=== PATIENT | male | born 1980 | race Caucasian/White ===

== ENCOUNTER 2018-09-04 15:17 | Emergency (ER) | payer MEDICARE, OTHER ==
[2018-09-04 15:23] VITALS: BP 112/77; PULSE 100; RESP 20; TEMP 98
[2018-09-04] MEDS ORDERED: IBUPROFEN 600 MG TAB PO STA (15:38)
--- NOTE | 2018-09-04 15:45 | ED ---
General Adult HPI - General Chief complaint: Back Pain/Injury Stated complaint: Fall, back injury Time Seen by Provider: 09/04/18 15:29 Source: patient, RN notes reviewed Mode of arrival: ambulatory Limitations: no limitations - History of Present Illness Initial comments: 38-year-old male presents to the emergency department for a chief complaint of back pain 40 minutes. Patient was walking when he slipped on the ice and fell. Patient hit the middle of his back. Patient did not hit his head or lose consciousness. No headache. No blood thinners. No low back pain. Patient also complains of right-sided paraspinal pain. Patient denies bladder or bowel changes. Patient denies saddle anesthesia, paresthesias in the legs, or weakness in the lower extremities. Patient has no other complaints at this time including shortness of breath, chest pain, abdominal pain, nausea or vomiting, headache, or visual changes. - Related Data Home Medications Medication Instructions Recorded Confirmed Albuterol Inhaler [Ventolin Hfa 1 - 2 puff INHALATION RT-Q6H PRN 09/04/18 Inhaler] Flovent Unknown Dose 1 puff INHALATION RT-BID 09/04/18 09/04/18 Ibuprofen [Motrin] 800 mg PO TID PRN 09/04/18 09/04/18 Loratadine [Claritin] 10 mg PO DAILY 09/04/18 09/04/18 Montelukast [Singulair] 10 mg PO HS 09/04/18 09/04/18 Allergies Allergy/AdvReac Type Severity Reaction Status Date / Time beclomethasone [From Qvar] Allergy Chest Pain Verified 09/04/18 15:47 Review of Systems ROS Statement: Those systems with pertinent positive or pertinent negative responses have been documented in the HPI. ROS Other: All systems not noted in ROS Statement are negative. Past Medical History Past Medical History: Asthma History of Any Multi-Drug Resistant Organisms: None Reported Past Surgical History: Ear Surgery Past Psychological History: Anxiety Smoking Status: Current every day smoker Past Alcohol Use History: None Reported Past Drug Use History: Marijuana General Exam Limitations: no limitations General appearance: alert, in no apparent distress Head exam: Present: atraumatic, normocephalic, normal inspection Eye exam: Present: normal appearance, PERRL, EOMI. Absent: scleral icterus, conjunctival injection, periorbital swelling ENT exam: Present: normal exam, mucous membranes moist Neck exam: Present: normal inspection, full ROM. Absent: tenderness, meningismus, lymphadenopathy Respiratory exam: Present: normal lung sounds bilaterally. Absent: respiratory distress, wheezes, rales, rhonchi, stridor Cardiovascular Exam: Present: regular rate, normal rhythm, normal heart sounds. Absent: systolic murmur, diastolic murmur, rubs, gallop, clicks GI/Abdominal exam: Present: soft, normal bowel sounds. Absent: distended, tenderness, guarding, rebound, rigid Extremities exam: Present: normal capillary refill (Capillary refill less than 2 seconds and DP pulse 2+ and lower extremities bilaterally) Back exam: Present: tenderness (Tenderness noted to the thoracic spine and right -sided posterior ribs). Absent: other (No hematoma or laceration noted of the back) Neurological exam: Present: alert, oriented X3, CN II-XII intact Psychiatric exam: Present: normal affect, normal mood Course Vital Signs 09/04/18 15:21 Temperature 98.0 F Pulse Rate 100 Respiratory 20 Rate Blood Pressure 112/77 O2 Sat by Pulse 99 Oximetry Medical Decision Making - Medical Decision Making X-ray of the thoracic spine shows no acute fracture or dislocation. No tenderness in the cervical or lumbar spines. Chest x-ray shows no acute cardiopulmonary process or pleural effusion. X-ray of the right ribs shows no displaced fracture seen. Soft tissue unremarkable. Urine does not show any blood. Patient given Motrin, feeling better at this time. Patient will follow up with primary care in 1-2 days and return if he has any worsening symptoms. Discussed Motrin and Tylenol for pain. - Lab Data Lab Results 09/04/18 Range/Units 16:11 Urine Color Yellow Urine Appearance Clear (Clear) Urine pH 7.5 (5.0-8.0) Ur Specific [place] 1.023 (1.001-1.035) Urine Protein Trace H (Negative) Urine Glucose (UA) Negative (Negative) Urine Ketones Negative (Negative) Urine Blood Negative (Negative) Urine Nitrite Negative (Negative) Urine Bilirubin Negative (Negative) Urine Urobilinogen 2.0 (<2.0) mg/dL Ur Leukocyte Esterase Negative (Negative) Disposition Clinical Impression: Fall, Thoracic back pain Disposition: HOME SELF-CARE Condition: Good Instructions (If sedation given, give patient instructions): Acute Low Back Pain (ED) Additional Instructions: Please take Motrin or Tylenol for pain. Please follow up with primary care in 1 -2 days. Please return to the emergency department if you have any worsening symptoms. Is patient prescribed a controlled substance at d/c from ED?: No Referrals: Eric Jang MD [Primary Care Provider] - 1-2 days Time of Disposition: 16:44
--- NOTE | 2018-09-04 16:01 | XR ---
EXAMINATION TYPE: XR ribs RT w pa chest xray DATE OF EXAM: 09/04/2018 CLINICAL HISTORY: Fall injury with chest and right-sided rib pain. TECHNIQUE: Single frontal view of the chest is obtained. A frontal and oblique images of the right-si ded ribs are acquired. COMPARISON: None FINDINGS: There is no focal air space opacity, pleural effusion, or pneumothorax seen. The cardiac silhouette size is within normal limits. The osseous structures are intact. Dedicated images of right-sided ribs show no acute displaced fracture. Overlying soft tissue is unrem arkable. IMPRESSION: 1. No acute cardiopulmonary process. 2. No acute displaced right-sided rib fractures are seen.
--- NOTE | 2018-09-04 16:03 | XR ---
EXAMINATION TYPE: XR thoracic spine 2V DATE OF EXAM: 09/04/2018 CLINICAL HISTORY: Fall injury with mid back pain. TECHNIQUE: Frontal, lateral, and swimmer's view of thoracic spine are obtained. COMPARISON: None. FINDINGS: Thoracic spine show satisfactory alignment without evidence of acute fracture or dislocatio n. Vertebral body heights and disc space heights are preserved. Visualized ribs are unremarkable. IMPRESSION: No acute fracture or dislocation is seen in the thoracic spine.
[2018-09-04 16:29] LABS: Appearance,Urine Clear (Clear); Bilirubin,Urine Negative (Negative); Blood,Urine Negative (Negative); Color,Urine Yellow; Glucose,Urine (UA) Negative (Negative); Ketones,Urine Negative (Negative); Leukocyte Esterase,Urine Negative (Negative); Nitrite,Urine Negative (Negative); PH, Urine 7.5 (5.0-8.0); Protein,Urine Trace (Negative); Specific Gravity,Urine 1.023 (1.001-1.035)
== END 2018-09-04 17:13 | disposition home or self-care (01) ==
LOC: EC 15:17
DX: M54.6 Pain in thoracic spine (principal); J45.909 Unspecified asthma, uncomplicated; F41.9 Anxiety disorder, unspecified; F17.200 Nicotine dependence, unspecified, uncomplicated; Z79.51 Long term (current) use of inhaled steroids; Z79.899 Other long term (current) drug therapy; Z88.8 Allergy status to other drugs, medicaments and biological substances
CPT/HCPCS: 72070; 81003; 99283

== ENCOUNTER 2020-05-22 12:24 | Emergency (ER) | payer MEDICARE, OTHER ==
[2020-05-22 12:34] VITALS: BP 113/86; PULSE 112; RESP 18; TEMP 98.8
--- NOTE | 2020-05-22 14:04 | XR ---
EXAMINATION TYPE: XR chest 2V DATE OF EXAM: 05/22/2020 COMPARISON: Prior chest x-rays to 09/04/2018 HISTORY: Cough TECHNIQUE: Frontal and lateral views of the chest are obtained. FINDINGS: There is bronchial wall thickening. No pneumothorax or pleural effusion. Cardiac mediastin al silhouette, pulmonary vascularity and carolyn are stable. No evident airspace disease. IMPRESSION: Correlate for bronchitis or reactive airways disease, follow-up as indicated.
--- NOTE | 2020-05-22 14:13 | ED ---
General Adult HPI - General Chief complaint: Upper Respiratory Infection Stated complaint: COVID Test Time Seen by Provider: 05/22/20 12:39 Source: patient Mode of arrival: ambulatory Limitations: no limitations - History of Present Illness Initial comments: She 39-year-old male presenting to the emergency department with a chief complaint of cough and sore throat. Patient reports symptoms began yesterday. Patient states she is a smoker and does have history of asthma so his cough is at baseline. However, he does report slight increase in the nonproductive cough. He does report sore throat along with rhinorrhea. He denies any chest pain or shortness of breath. Denies any night sweats or chills. - Related Data Home Medications Medication Instructions Recorded Confirmed Albuterol Inhaler (Mhu) [Ventolin 1 - 2 puff INHALATION RT-Q6H PRN 09/04/18 09/04/18 Hfa Inhaler] Flovent Unknown Dose 1 puff INHALATION RT-BID 09/04/18 09/04/18 Ibuprofen [Motrin] 800 mg PO TID PRN 09/04/18 09/04/18 Loratadine [Claritin] 10 mg PO DAILY 09/04/18 09/04/18 Montelukast [Singulair] 10 mg PO HS 09/04/18 09/04/18 Allergies Allergy/AdvReac Type Severity Reaction Status Date / Time beclomethasone [From Qvar] Allergy Chest Pain Verified 05/22/20 12:32 Review of Systems ROS Statement: Those systems with pertinent positive or pertinent negative responses have been documented in the HPI. ROS Other: All systems not noted in ROS Statement are negative. Past Medical History Past Medical History: Asthma, COPD History of Any Multi-Drug Resistant Organisms: None Reported Past Surgical History: Ear Surgery Past Psychological History: Anxiety Smoking Status: Current every day smoker Past Alcohol Use History: None Reported, Daily Past Drug Use History: Marijuana General Exam Limitations: no limitations General appearance: alert, in no apparent distress Head exam: Present: atraumatic, normocephalic, normal inspection Eye exam: Present: normal appearance, PERRL, EOMI Pupils: Present: normal accommodation ENT exam: Present: normal exam, normal oropharynx, mucous membranes moist, TM's normal bilaterally, normal external ear exam Neck exam: Present: normal inspection, full ROM. Absent: tenderness, lymphadenopathy Respiratory exam: Present: normal lung sounds bilaterally. Absent: respiratory distress, wheezes, rhonchi, stridor, chest wall tenderness, accessory muscle use, decreased breath sounds, prolonged expiratory Cardiovascular Exam: Present: regular rate, normal rhythm, normal heart sounds GI/Abdominal exam: Present: soft. Absent: distended, tenderness, guarding, rebound Extremities exam: Present: normal inspection, full ROM, normal capillary refill. Absent: tenderness Back exam: Present: normal inspection, full ROM. Absent: tenderness, CVA tenderness (R), CVA tenderness (L) Neurological exam: Present: alert, oriented X3, normal gait Psychiatric exam: Present: normal affect, normal mood Skin exam: Present: warm, dry, intact, normal color Course Vital Signs 05/22/20 12:29 Temperature 98.8 F Pulse Rate 112 H Respiratory 18 Rate Blood Pressure 113/86 O2 Sat by Pulse 97 Oximetry Medical Decision Making - Medical Decision Making Patient a 39-year-old male presenting to the emergency department with chief complaint of cough and sore throat. On physical examination, patient is not in any respiratory distress. He is clear to auscultation. ENT exam unremarkable. I suspect the patient has an upper respiratory infection with bronchitis. X-ray does correlate for bronchitis. No signs of pneumonia. His vitals are stable. covid-19t testing pending. She was advised to suffice for next 2 days until covid-19e testing pending. He was advised to take Tylenol if he develops a fever. I counseled the patient for smoking cessation for greater than 3 minutes Strict return parameters were thoroughly discussed patient is sitting and agreeable. Case discussed with physician. Disposition Clinical Impression: Acute upper respiratory infection, Bronchitis Disposition: HOME SELF-CARE Condition: Stable Instructions (If sedation given, give patient instructions): Upper Respiratory Infection (ED) Additional Instructions: Self isolate for the next 2 days and to receive the results of the Covid testing. Take Tylenol if she develops fever. Return to emergency department if symptoms worsen. Follow-up with the primary care physician. Is patient prescribed a controlled substance at d/c from ED?: No Referrals: Eric Jang MD [Primary Care Provider] - 1-2 days Time of Disposition: 14:13
== END 2020-05-22 14:43 | disposition home or self-care (01) ==
LOC: EC 12:24
DX: J06.9 Acute upper respiratory infection, unspecified (principal); J44.9 Chronic obstructive pulmonary disease, unspecified; F17.200 Nicotine dependence, unspecified, uncomplicated; Z71.6 Tobacco abuse counseling; Z20.828 Contact with and (suspected) exposure to other viral communicable diseases; Z79.51 Long term (current) use of inhaled steroids; Z88.8 Allergy status to other drugs, medicaments and biological substances
CPT/HCPCS: 71046; 99283; 99406; U0003

== ENCOUNTER 2021-04-20 18:04 | Emergency (ER) | payer MEDICARE, OTHER ==
[2021-04-20 18:20] VITALS: RESP 20
[2021-04-20] MEDS ORDERED: LIDOCAINE 1% INJ 10MG/ML (20 ML MDV) SQ ONE (19:04)
[2021-04-20] MEDS ORDERED: KETOROLAC 15 MG/ML 1 ML VIAL IM STA (19:04)
--- NOTE | 2021-04-20 19:53 | ED ---
Skin/Abscess/FB HPI - General Chief complaint: Skin/Abscess/Foreign Body Stated complaint: abscess on buttock Time Seen by Provider: 04/20/21 18:54 Source: patient, RN notes reviewed Mode of arrival: ambulatory Limitations: no limitations - History of Present Illness Initial comments: Patient is a 40-year-old male that presents to the emergency department complaining of a left buttock abscess. He notes that is been there for the past 4 days and is progressively got worse. Hetried getting himself taking warm baths warm compresses with no relief. He notes that he finally came in to get it drained today. He denied any other issues or complaints. He notes that it is painful to sit move on his left buttock. He denied any chest pain shortness of breath headache nausea vomiting diarrhea constipation fever fatigue chills. - Related Data Home Medications Medication Instructions Recorded Confirmed Albuterol Inhaler (Mhu) [Ventolin 1 - 2 puff INHALATION RT-Q6H PRN 09/04/18 09/04/18 Hfa Inhaler] Flovent Unknown Dose 1 puff INHALATION RT-BID 09/04/18 09/04/18 Ibuprofen [Motrin] 800 mg PO TID PRN 09/04/18 09/04/18 Loratadine [Claritin] 10 mg PO DAILY 09/04/18 09/04/18 Montelukast [Singulair] 10 mg PO HS 09/04/18 09/04/18 Previous Rx's Medication Instructions Recorded Sulfamethox-Tmp 800-160Mg [Bactrim 1 each PO Q12HR #20 tab 04/20/21 Ds] Allergies Allergy/AdvReac Type Severity Reaction Status Date / Time beclomethasone [From Qvar] Allergy Chest Pain Verified 04/20/21 18:20 Review of Systems ROS Statement: Those systems with pertinent positive or pertinent negative responses have been documented in the HPI. ROS Other: All systems not noted in ROS Statement are negative. Past Medical History Past Medical History: Asthma, COPD History of Any Multi-Drug Resistant Organisms: None Reported Past Surgical History: Ear Surgery Past Psychological History: Anxiety Smoking Status: Current every day smoker Past Alcohol Use History: None Reported, Daily Past Drug Use History: Marijuana General Exam Limitations: no limitations General appearance: alert, in no apparent distress Head exam: Present: atraumatic, normocephalic, normal inspection Eye exam: Present: normal appearance, PERRL, EOMI. Absent: scleral icterus, conjunctival injection, periorbital swelling Neck exam: Present: normal inspection Respiratory exam: Present: normal lung sounds bilaterally. Absent: respiratory distress, wheezes, rales, rhonchi, stridor Cardiovascular Exam: Present: regular rate, normal rhythm, normal heart sounds. Absent: systolic murmur, diastolic murmur, rubs, gallop, clicks GI/Abdominal exam: Present: soft, normal bowel sounds. Absent: distended, tenderness, guarding, rebound, rigid Extremities exam: Present: normal inspection, full ROM, normal capillary refill. Absent: tenderness, pedal edema, joint swelling, calf tenderness Neurological exam: Present: alert, oriented X3 Psychiatric exam: Present: normal affect, normal mood Skin exam: Present: warm, dry, intact, normal color. Absent: rash Expanded Type of lesion: Present: abscess (Inside left buttock superior aspect measuring approximately 4 cm x 4 cm. Tender to touch. Erythematous.) Course Vital Signs 04/20/21 18:18 Temperature 98.1 F Pulse Rate 107 H Respiratory 20 Rate Blood Pressure 118/73 O2 Sat by Pulse 94 L Oximetry Procedures - Incision & Drainage Consent Obtained: verbal consent Site: buttock (Left) Size (cm): 5 Anesthetic Used: lidocaine 1% I&D Cleaning Method: Betadine Sterile Field Used?: Yes Scalpel Used: #11 Needle Aspiration Performed?: No Irrigation Performed?: Yes I&D Drainage Obtained: Pus, Blood Culture Obtained?: Yes Complications: pain Patient Tolerated Procedure: well Medical Decision Making - Medical Decision Making 40-year-old male with a left buttock abscess. Lidocaine, 15 mg of Toradol. Area was sterilized using Betadine, local anesthetic was applied around the abscess and then directly into the abscess. Small incision using a scalpel made over the most fluctuant area. Patient tolerated well did have minimal discomfort. Wound culture obtained. Patient will be sent home with antibiotics. Case discussed with Dr. Guaman, patient can discharge home. Disposition Clinical Impression: Left buttock abscess Disposition: HOME SELF-CARE Condition: Stable Instructions (If sedation given, give patient instructions): Abscess (ED), Abscess Incision and Drainage (ED) Additional Instructions: Please return to the Emergency Department if symptoms worsen or any other concerns. Take antibiotics as prescribed until complete. Follow-up primary care 1-2 days. Sits baths as needed for discomfort and tenderness. Take Tylenol Motrin as needed for pain. Is patient prescribed a controlled substance at d/c from ED?: No Referrals: Eric Jang MD [Primary Care Provider] - 1-2 days Time of Disposition: 19:53
[2021-04-20 20:14] VITALS: BP 116/78; PULSE 98; TEMP 98
== END 2021-04-20 20:13 | disposition home or self-care (01) ==
LOC: EC 18:04
DX: L02.31 Cutaneous abscess of buttock (principal); J44.9 Chronic obstructive pulmonary disease, unspecified; F17.200 Nicotine dependence, unspecified, uncomplicated; F12.90 Cannabis use, unspecified, uncomplicated; Z79.51 Long term (current) use of inhaled steroids; Z79.1 Long term (current) use of non-steroidal anti-inflammatories (NSAID); Z79.899 Other long term (current) drug therapy
CPT/HCPCS: 87070; 87205; 10060; 96372; 99283; J2001; J1885

== ENCOUNTER 2021-05-26 08:06 | Emergency (ER) | payer MEDICARE, OTHER ==
[2021-05-26 08:11] VITALS: BP 138/99; PULSE 99; RESP 18; TEMP 98.9
[2021-05-26] MEDS ORDERED: ACET/COD 300 MG/30 MG STARTER PACK 6 TAB BTL PO STA (08:32)
--- NOTE | 2021-05-26 08:32 | ED ---
General Adult HPI - General Stated complaint: dental infection Time Seen by Provider: 05/26/21 08:10 Source: patient, RN notes reviewed Mode of arrival: ambulatory Limitations: no limitations - History of Present Illness Initial comments: 32-year-old male presents from for dental infection. Patient was placed on amoxicillin he states he missed several days of the symptoms worsen. Patient has left cheek swelling, discomfort has not follow-up as directed. Patient denies any other complaints no headache dizziness difficulty swelling no fevers or chills. - Related Data Home Medications Medication Instructions Recorded Confirmed Albuterol Inhaler (Mhu) [Ventolin 1 - 2 puff INHALATION RT-Q6H PRN 09/04/18 09/04/18 Hfa Inhaler] Flovent Unknown Dose 1 puff INHALATION RT-BID 09/04/18 09/04/18 Ibuprofen [Motrin] 800 mg PO TID PRN 09/04/18 09/04/18 Loratadine [Claritin] 10 mg PO DAILY 09/04/18 09/04/18 Montelukast [Singulair] 10 mg PO HS 09/04/18 09/04/18 Previous Rx's Medication Instructions Recorded Sulfamethox-Tmp 800-160Mg [Bactrim 1 each PO Q12HR #20 tab 04/20/21 Ds] Chlorhexidine Gluconate [Peridex] 15 ml PO BID #473 ml 05/26/21 Clindamycin HCl 300 mg PO Q6HR #40 cap 05/26/21 Ibuprofen [Motrin] 600 mg PO Q8HR PRN #30 tab 05/26/21 Allergies Allergy/AdvReac Type Severity Reaction Status Date / Time beclomethasone [From Qvar] Allergy Chest Pain Verified 05/26/21 08:11 Review of Systems ROS Statement: Those systems with pertinent positive or pertinent negative responses have been documented in the HPI. ROS Other: All systems not noted in ROS Statement are negative. Past Medical History Past Medical History: Asthma, COPD, Hyperlipidemia Additional Past Medical History / Comment(s): alcoholism History of Any Multi-Drug Resistant Organisms: None Reported Past Surgical History: Ear Surgery Past Psychological History: Anxiety Smoking Status: Current every day smoker Past Alcohol Use History: Daily Past Drug Use History: Marijuana General Exam Limitations: no limitations General appearance: alert, in no apparent distress Head exam: Present: atraumatic, normocephalic, normal inspection Eye exam: Present: normal appearance, PERRL, EOMI. Absent: scleral icterus, conjunctival injection, periorbital swelling ENT exam: Present: mucous membranes moist, TM's normal bilaterally, normal external ear exam. Absent: normal oropharynx (Poor dentition, no drainable abscess there is mild swelling of the left cheek region) Neck exam: Present: normal inspection, full ROM. Absent: tenderness, meningismus, lymphadenopathy Respiratory exam: Present: normal lung sounds bilaterally. Absent: respiratory distress, wheezes, rales, rhonchi, stridor Cardiovascular Exam: Present: regular rate, normal rhythm, normal heart sounds. Absent: systolic murmur, diastolic murmur, rubs, gallop, clicks Course Vital Signs 05/26/21 08:08 Temperature 98.9 F Pulse Rate 99 Respiratory 18 Rate Blood Pressure 138/99 O2 Sat by Pulse 97 Oximetry Medical Decision Making - Medical Decision Making Patient advised that needs a follow-up with dentist or oral surgeon as directed. Return parameters were discussed patient placed on clindamycin, Peridex. Disposition Clinical Impression: Dental infection Disposition: HOME SELF-CARE Condition: Stable Instructions (If sedation given, give patient instructions): Dental Abscess (ED) Additional Instructions: Please return to the Emergency Department if symptoms worsen or any other concerns. Prescriptions: Clindamycin HCl 300 mg PO Q6HR #40 cap Ibuprofen [Motrin] 600 mg PO Q8HR PRN #30 tab PRN Reason: Pain Chlorhexidine Gluconate [Peridex] 15 ml PO BID #473 ml Is patient prescribed a controlled substance at d/c from ED?: No Referrals: Eric Jang MD [Primary Care Provider] - 1-2 days
== END 2021-05-26 08:45 | disposition home or self-care (01) ==
LOC: EC 08:06
DX: K04.7 Periapical abscess without sinus (principal); J44.9 Chronic obstructive pulmonary disease, unspecified; E78.5 Hyperlipidemia, unspecified; F41.9 Anxiety disorder, unspecified; F17.200 Nicotine dependence, unspecified, uncomplicated; F12.90 Cannabis use, unspecified, uncomplicated
CPT/HCPCS: 99282

== ENCOUNTER 2022-04-26 16:45 | Emergency (ER) | payer MEDICARE, OTHER ==
[2022-04-26] MEDS ORDERED: MORPHINE SULFATE 4 MG/ML SYRINGE IV STA (16:48)
[2022-04-26] MEDS ORDERED: PROPOFOL 10 MG/ML 20 ML VIAL IV ONE (16:51)
[2022-04-26 16:53] VITALS: RESP 18; TEMP 98.1
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
--- NOTE | 2022-04-26 17:29 | XR ---
EXAMINATION TYPE: XR chest 1V portable DATE OF EXAM: 04/26/2022 COMPARISON: 05/22/2020 HISTORY: Chest pain TECHNIQUE: Single frontal view of the chest is obtained. FINDINGS: There is no focal air space opacity, pleural effusion, or pneumothorax seen. The cardiac silhouette size is within normal limits. The osseous structures are intact. IMPRESSION: 1. No acute process.
--- NOTE | 2022-04-26 17:29 | XR ---
EXAMINATION TYPE: XR pelvis AP view DATE OF EXAM: 04/26/2022 CLINICAL HISTORY: pain TECHNIQUE: Single view the pelvis is submitted. FINDINGS: No evidence for fracture, dislocation or bony lesion. Joint spaces are well-preserved. S I joints appear symmetric. IMPRESSION: 1. No acute fracture or dislocation seen. ICD 10 NO FRACTURE, INITIAL EVALUATION
--- NOTE | 2022-04-26 17:32 | XR ---
EXAMINATION TYPE: XR ankle limited RT DATE OF EXAM: 04/26/2022 COMPARISON: NONE HISTORY: Pain TECHNIQUE: 2 views of the right ankle are submitted. COMPARISON: None. FINDINGS: Examination is limited by overlying cast material. There is displaced distal fibular fractu re with mild comminution with displacement of 5 mm. Medial malleolar fracture is also noted. There is anterior malleolar fracture as well as posterior malleolar fracture. Ankle mortise demonstrates abno rmal widening medially measuring 5.8 mm. There is also widening of the medial tibiotalar joint space. No additional fracture seen. IMPRESSION: Fractures of the medial malleolus, anterior malleolus, posterior malleolus and distal fib farida. Instability of the ankle mortise.
[2022-04-26 17:38] LABS: Chloride 107 mmol/L (98-107)
[2022-04-26 17:40] LABS: HCT 51.1 % (39.0-53.0); HGB 17.4 gm/dL (13.0-17.5); MCH 32.1 pg (25.0-35.0); MCV 94.5 fL (80.0-100.0); Mean Platelet Volume 8.2; Platelet Count 344 k/uL (150-450); RBC 5.41 m/uL (4.30-5.90); RDW 13.8 % (11.5-15.5); WBC 13.3 k/uL (3.8-10.6)
[2022-04-26 17:41] LABS: ALT 44 U/L (4-49); AST 42 U/L (17-59); African American GFR (CKD) >90 (>60 ml/min/1.73 sqM); Albumin 4.6 g/dL (3.5-5.0); Alkaline Phosphatase 88 U/L (38-126); Anion Gap 19 mmol/L; Blood Urea Nitrogen 11 mg/dL (9-20); Calcium 9.8 mg/dL (8.4-10.2); Carbon Dioxide 16 mmol/L (22-30); Glucose 119 mg/dL (74-99); Non-African American GFR(CKD) 81 (>60 ml/min/1.73 sqM); Potassium 4.7 mmol/L (3.5-5.1); Sodium 142 mmol/L (137-145); Total Bilirubin 0.3 mg/dL (0.2-1.3); Total Protein 7.4 g/dL (6.3-8.2)
[2022-04-26 17:43] LABS: Alcohol 188 mg/dL
[2022-04-26 18:57] LABS: Amphetamine Screen,Urine Not Detected (NotDetected); Barbiturate Screen,Urine Not Detected (NotDetected); Benzodiazepines Screen,Urine Not Detected (NotDetected); Cocaine Screen,Urine Not Detected (NotDetected); Methadone Screen, Urine Not Detected (NotDetected); Opiate Screen,Urine Detected (NotDetected); Oxycodone Screen, Urine Not Detected (NotDetected); Phencyclidine Screen,Urine Not Detected (NotDetected); Tricyclic Antidepressant,Urine Not Detected (NotDetected); Urn Cannabinoid Scrn Detected (NotDetected)
--- NOTE | 2022-04-26 19:03 | CT ---
EXAMINATION TYPE: CT brain jayme will DATE OF EXAM: 04/26/2022 COMPARISON: None HISTORY: [facility] CT DLP: 1368.[address] Brain: Unenhanced CT of the brain was performed. The ventricles, basal cisterns and sulci overlying the cerebral convexities demonstrate a normal appe arance. There is no evidence for intracranial hemorrhage or sulcal effacement. No mass effects are seen. If symptoms persist consider MRI. Osseous calvarium is intact. Opacification left maxillary sinus. IMPRESSION: No acute intracranial process CT Cervical Spine: Unenhanced CT of the cervical spine was performed with bone and soft tissue window settings submitted . Coronal and sagittal reconstruction is obtained. There is normal alignment and prevertebral soft tissues. I do not see evidence for fracture or sublu xation. No significant degenerative changes are present. The lung apices are clear. IMPRESSION: No evidence for acute fracture or subluxation of the cervical spine.
[2022-04-26 19:04] VITALS: BP 115/83; PULSE 90
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
[2022-04-26] MEDS ORDERED: HYDROmorphone 1 MG/ML 1 ML SYRINGE IVP STA (19:14)
[2022-04-26 19:15] LABS: Eosinophils # (M) 1.06 k/uL (0-0.7); Lymphocytes # (M) 7.18 k/uL (1.0-4.8); Neutrophils # (M) 4.26 k/uL (1.3-7.7); Neutrophils % (M) 32 %; Nucleated Red Blood Cells 0 /100 WBC (0-0); Total Cells Counted 100
[2022-04-26] MEDS ORDERED: DIPH,PERTUS(ACELL)TETVAC-LF 0.5 ML VIAL IM ONE (19:22)
== END 2022-04-26 20:54 | disposition other institution (70) ==
LOC: EC 16:45
DX: S82.51XA Displaced fracture of medial malleolus of right tibia, initial encounter for closed fracture (principal); S40.812A Abrasion of left upper arm, initial encounter; S40.811A Abrasion of right upper arm, initial encounter; S80.812A Abrasion, left lower leg, initial encounter; R07.9 Chest pain, unspecified; F10.20 Alcohol dependence, uncomplicated; F12.90 Cannabis use, unspecified, uncomplicated; F11.90 Opioid use, unspecified, uncomplicated; J44.9 Chronic obstructive pulmonary disease, unspecified; E78.5 Hyperlipidemia, unspecified; F17.200 Nicotine dependence, unspecified, uncomplicated; Z20.822 Contact with and (suspected) exposure to COVID-19; Z23 Encounter for immunization; Z79.51 Long term (current) use of inhaled steroids; Z88.5 Allergy status to narcotic agent; V28.4XXA Motorcycle driver injured in noncollision transport accident in traffic accident, initial encounter; Y90.6 Blood alcohol level of 120-199 mg/100 ml
CPT/HCPCS: 36415; 93005; 86900; 86901; 80053; 84484; 85025; 86850; 80306; 87635; 72170; 73600; 71045; 72125; 70450; 71260; 74177; 90715; 99285; 27762; 96374; 96375; 90471; G0480; J2270; J1170; Q9967; 80320

== ENCOUNTER 2023-01-16 11:17 | Emergency (ER) | payer MEDICARE, OTHER ==
[2023-01-16] MEDS ORDERED: CARBAMIDE PEROXIDE 6.5% DROPS 15 ML BTL LEFT EAR STA (11:51)
--- NOTE | 2023-01-16 11:54 | ED ---
ENT HPI - General Chief complaint: ENT Stated complaint: Unable to hear out of left ear Time Seen by Provider: 01/16/23 11:33 Source: patient, RN notes reviewed, old records reviewed Mode of arrival: ambulatory Limitations: no limitations - History of Present Illness Initial comments: Patient states he woke up this morning to clean the wax out of his ears with a Q-tip and was unable and now has hearing loss. Denies any pain or bleeding. No drainage. No fevers. No other symptoms. History of asthma, COPD, hyperlipidemia. MD complaint: other (hearing loss left ear with wax impaction) -: hour(s) Location: ear Severity scale (1-10): 0 - Related Data Home Medications Medication Instructions Recorded Confirmed Albuterol Inhaler [Ventolin Hfa 1 - 2 puff INHALATION RT-Q6H PRN 09/04/18 09/04/18 Inhaler] Flovent Unknown Dose 1 puff INHALATION RT-BID 09/04/18 09/04/18 Ibuprofen [Motrin] 800 mg PO TID PRN 09/04/18 09/04/18 Loratadine [Claritin] 10 mg PO DAILY 09/04/18 09/04/18 Montelukast [Singulair] 10 mg PO HS 09/04/18 09/04/18 Previous Rx's Medication Instructions Recorded Sulfamethox-Tmp 800-160Mg [Bactrim 1 each PO Q12HR #20 tab 04/20/21 Ds] Chlorhexidine Gluconate [Peridex] 15 ml PO BID #473 ml 05/26/21 Ibuprofen [Motrin] 600 mg PO Q8HR PRN #30 tab 05/26/21 clindamycin HCL [Clindamycin HCl] 300 mg PO Q6HR #40 cap 05/26/21 Allergies Allergy/AdvReac Type Severity Reaction Status Date / Time beclomethasone [From Qvar] Allergy Chest Pain Verified 01/16/23 11:31 Review of Systems ROS Statement: Those systems with pertinent positive or pertinent negative responses have been documented in the HPI. ROS Other: All systems not noted in ROS Statement are negative. Past Medical History Past Medical History: Asthma, COPD, Hyperlipidemia Additional Past Medical History / Comment(s): alcoholism History of Any Multi-Drug Resistant Organisms: None Reported Past Surgical History: Ear Surgery, Orthopedic Surgery Additional Past Surgical History / Comment(s): right foot, Past Psychological History: Anxiety Smoking Status: Current every day smoker Past Alcohol Use History: Daily Past Drug Use History: Marijuana General Exam Limitations: no limitations General appearance: alert, in no apparent distress Head exam: Present: atraumatic Eye exam: Present: normal appearance. Absent: scleral icterus, conjunctival injection, periorbital swelling ENT exam: Present: mucous membranes moist Expanded Ear exam: Present: normal external inspection. Absent: auricular hematoma, auricular trauma TM/Canal exam: Cerumen Impaction: Left TM (right ear clear) Mouth exam: Absent: drooling, trismus, muffled voice Neck exam: Present: full ROM. Absent: tenderness, meningismus, lymphadenopathy, thyromegaly Respiratory exam: Absent: respiratory distress, accessory muscle use Cardiovascular Exam: Present: tachycardia Extremities exam: Present: normal capillary refill Neurological exam: Present: alert, oriented X3 Psychiatric exam: Present: normal affect, normal mood Skin exam: Present: warm, dry, normal color. Absent: cyanosis, diaphoretic, pallor Course Vital Signs 01/16/23 01/16/23 11:28 12:35 Temperature 98.7 F 98.5 F Pulse Rate 105 H 94 Respiratory 18 16 Rate Blood Pressure 125/80 127/81 O2 Sat by Pulse 96 97 Oximetry Medical Decision Making - Medical Decision Making Was pt. sent in by a medical professional or institution (RABIA Mata, DAMAGE ADJUSTER, urgent care, hospital, or long-term...) When possible be specific @ -No Did you speak to anyone other than the patient for history (EMS, parent, family, police, friend...)? What history was obtained from this source @ -No Did you review nursing and triage notes (agree or disagree)? Why? @ -I reviewed and agree with nursing and triage notes Were old charts reviewed (outside hosp., previous admission, EMS record, old EKG, old radiological studies, urgent care reports/EKG's, long-term records)? Report findings @ -No old charts were reviewed Differential Diagnosis (chest pain, altered mental status, abdominal pain women, abdominal pain men, vaginal bleeding, weakness, fever, dyspnea, syncope, headache, dizziness, GI bleed, back pain, seizure, CVA, palpatations, mental health, musculoskeletal)? @ -Foreign body, otitis externa, otitis media, cerumen impaction EKG interpreted by me (3pts min.). @ -n/a X-rays interpreted by me (1pt min.). @ -None done CT interpreted by me (1pt min.). @ -None done U/S interpreted by me (1pt. min.). @ -None done What testing was considered but not performed or refused? (CT, X-rays, U/S, labs)? Why? @ -None What meds were considered but not given or refused? Why? @ -None Did you discuss the management of the patient with other professionals (professionals i.e. , PA, DAMAGE ADJUSTER, lab, RT, psych nurse, professor of social work, supervisor home energy consultant, teacher, annual giving officer, family independence case manager)? Give summary @ -No Was smoking cessation discussed for >3mins.? @ -No Was critical care preformed (if so, how long)? @ -No Were there social determinants of health that impacted care today? How? (Homelessness, low income, unemployed, alcoholism, drug addiction, transportation, low edu. Level, literacy, decrease access to med. care, [facility], rehab)? @ -No Was there de-escalation of care discussed even if they declined (Discuss DNR or withdrawal of care, Hospice)? DNR status @ -No What co-morbidities impacted this encounter? (DM, HTN, Smoking, COPD, CAD, Cancer, CVA, ARF, Chemo, Hep., AIDS, mental health diagnosis, sleep apnea, morbid obesity)? @ -History of asthma, COPD, hyperlipidemia. Was patient admitted / discharged? Hospital course, mention meds given and route, prescriptions, significant lab abnormalities, going to OR and other pertinent info. @ -Discharged Patient states he woke up this morning to clean the wax out of his ears with a Q-tip and was unable and now has hearing loss. Denies any pain or bleeding. No drainage. No fevers. No other symptoms. Nursing staff instilled Debrox and irrigated with warm water and hydrogen peroxide combination with success, cerumen impaction relieved and patient feeling much better. Patient was directed not to use Q-tips. Use [id number] Debrox solution as needed. Follow-up with ENT as needed. Case discussed with Dr. Hook Undiagnosed new problem with uncertain prognosis? @ -No Drug Therapy requiring intensive monitoring for toxicity (Heparin, Nitro, Insulin, Cardizem)? @ -No Were any procedures done? @ -No Diagnosis/symptom? @ -Cerumen impaction left ear Acute, or Chronic, or Acute on Chronic? @ -Acute Uncomplicated (without systemic symptoms) or Complicated (systemic symptoms)? @ -Uncomplicated Side effects of treatment? @ -No Exacerbation, Progression, or Severe Exacerbation? @ -No Poses a threat to life or bodily function? How? (Chest pain, [place], [place], pneumonia, PE, COPD, DKA, ARF, appy, cholecystitis, CVA, Diverticulitis, Homicidal, Suicidal, threat to staff... and all critical care pts) @ -No Disposition Clinical Impression: Cerumen impaction Disposition: HOME SELF-CARE Condition: Good Instructions (If sedation given, give patient instructions): Earache (ED) Additional Instructions: You can use [id number] earwax treatments however do not use Q-tips which will pack the wax tightly causing hearing loss. Follow-up with ENT as needed. Return to the emergency room with any new or concerning symptoms. Is patient prescribed a controlled substance at d/c from ED?: No Referrals: Eric Jang MD [Primary Care Provider] - 1-2 days Christian Torres MD [STAFF PHYSICIAN] - 1-2 days Time of Disposition: 12:23
[2023-01-16 12:37] VITALS: BP 127/81; PULSE 94; RESP 16; TEMP 98.5
== END 2023-01-16 13:15 | disposition home or self-care (01) ==
LOC: EC 11:17
DX: H61.22 Impacted cerumen, left ear (principal); J44.9 Chronic obstructive pulmonary disease, unspecified; F41.9 Anxiety disorder, unspecified; F17.200 Nicotine dependence, unspecified, uncomplicated; F12.90 Cannabis use, unspecified, uncomplicated; Z88.8 Allergy status to other drugs, medicaments and biological substances; Z79.899 Other long term (current) drug therapy
CPT/HCPCS: 99282

== ENCOUNTER 2023-08-06 15:22 | Emergency (ER) | payer MEDICARE, OTHER ==
[2023-08-06 15:43] VITALS: RESP 18
--- NOTE | 2023-08-06 16:12 | ED ---
Chest Pain HPI - General Source: patient, RN notes reviewed Mode of arrival: ambulatory Limitations: no limitations <Elian Doe - Last Filed: 08/06/23 16:11> - History of Present Illness MD Complaint: chest pain -: days(s) Onset: during rest, during exertion Pain Location: left chest, epigastric Pain Radiation: none Severity: moderate Severity scale (1-10): 4 Consistency: constant, intermittent Improves With: nothing Other Symptoms: cough Treatments Prior to Arrival: none <Gil Ann - Last Filed: 08/17/23 21:09> - General Chief Complaint: Chest Pain Stated Complaint: chest pain Time Seen by Provider: 08/06/23 16:11 - History of Present Illness Initial Comments: Patient is a 43-year-old male presented ER with chief complaint of chest pain. Patient is reporting that he is having chest pain and mild shortness of breath. He does states going on for about 3 days. He does believe he is having a cold. Patient denies any fevers, chills, night sweats. (Elian Doe) This is a 43-year-old male to the emergency department for evaluation of chest pain today chest pain or shortness of breath for 3 days increased cough and congestion as well. No travel history no sick contacts. (Gil Ann) - Related Data Home Medications Medication Instructions Recorded Confirmed Albuterol Inhaler [Ventolin Hfa 1 - 2 puff INHALATION RT-Q6H PRN 09/04/18 09/04/18 Inhaler] Flovent Unknown Dose 1 puff INHALATION RT-BID 09/04/18 09/04/18 Ibuprofen [Motrin] 800 mg PO TID PRN 09/04/18 09/04/18 Loratadine [Claritin] 10 mg PO DAILY 09/04/18 09/04/18 Montelukast [Singulair] 10 mg PO HS 09/04/18 09/04/18 Previous Rx's Medication Instructions Recorded Sulfamethox-Tmp 800-160Mg [Bactrim 1 each PO Q12HR #20 tab 04/20/21 Ds] Chlorhexidine Gluconate [Peridex] 15 ml PO BID #473 ml 05/26/21 Ibuprofen [Motrin] 600 mg PO Q8HR PRN #30 tab 05/26/21 clindamycin HCL [Clindamycin HCl] 300 mg PO Q6HR #40 cap 05/26/21 Azithromycin [Zithromax] 500 mg PO DAILY 5 Days #5 tab 08/06/23 predniSONE 50 mg PO DAILY #5 tab 08/06/23 Allergies Allergy/AdvReac Type Severity Reaction Status Date / Time beclomethasone [From Qvar] Allergy Chest Pain Verified 08/06/23 15:29 Review of Systems ROS Other: All systems not noted in ROS Statement are negative. <Elian Doe - Last Filed: 08/06/23 16:11> ROS Other: All systems not noted in ROS Statement are negative. <Gil Ann - Last Filed: 08/17/23 21:09> ROS Statement: Those systems with pertinent positive or pertinent negative responses have been documented in the HPI. EKG Findings - EKG Comments: EKG Findings:: EKG is sinus 71 FL 152 QRS 73 QTC 387 - EKG Results: EKG: interpreted by ERMD <Gil Ann - Last Filed: 08/17/23 21:09> Past Medical History Past Medical History: Asthma, COPD, Hyperlipidemia Additional Past Medical History / Comment(s): alcoholism History of Any Multi-Drug Resistant Organisms: None Reported Past Surgical History: Ear Surgery, Orthopedic Surgery Additional Past Surgical History / Comment(s): right foot, Past Psychological History: Anxiety Smoking Status: Current every day smoker Past Alcohol Use History: Daily Past Drug Use History: Marijuana <Elian Doe - Last Filed: 08/06/23 16:11> General Exam Limitations: no limitations <Elian Doe - Last Filed: 08/06/23 16:11> General appearance: anxious Head exam: Present: atraumatic, normocephalic, normal inspection Eye exam: Present: normal appearance, PERRL, EOMI. Absent: scleral icterus, conjunctival injection, periorbital swelling ENT exam: Present: normal exam, mucous membranes moist Neck exam: Present: normal inspection. Absent: tenderness, meningismus, lymphadenopathy Respiratory exam: Present: normal lung sounds bilaterally. Absent: respiratory distress, wheezes, rales, rhonchi, stridor Cardiovascular Exam: Present: regular rate, normal rhythm, normal heart sounds. Absent: systolic murmur, diastolic murmur, rubs, gallop, clicks GI/Abdominal exam: Present: soft, normal bowel sounds. Absent: distended, tenderness, guarding, rebound, rigid Extremities exam: Present: normal inspection, full ROM, normal capillary refill. Absent: tenderness, pedal edema, joint swelling, calf tenderness Back exam: Present: normal inspection Neurological exam: Present: alert, oriented X3, CN II-XII intact Psychiatric exam: Present: normal affect, normal mood Skin exam: Present: warm, dry, intact, normal color. Absent: rash <Gil Ann - Last Filed: 08/17/23 21:09> - General Exam Comments Initial Comments: Visual Physical Exam Vital signs reviewed General: Well-appearing, nontoxic, no acute distress. Head: Normocephalic, atraumatic Eyes: PERRLA, EOMI ENT: Airway patent Chest: Nonlabored breathing Skin: No visual rash, normal skin tone Neuro: Alert and oriented 3 Musculoskeletal: No gross abnormalities (Elian Doe) Course <Gil Ann - Last Filed: 08/17/23 21:09> Vital Signs 08/06/23 08/06/23 08/06/23 15:24 22:26 23:26 Temperature 98.1 F 97.7 F Pulse Rate 102 H 67 68 Respiratory 18 18 Rate Blood Pressure 125/78 119/79 O2 Sat by Pulse 100 98 Oximetry 08/06/23 08/06/23 08/06/23 23:30 23:32 23:36 Temperature Pulse Rate 70 86 Respiratory 18 18 Rate Blood Pressure 105/89 O2 Sat by Pulse 98 Oximetry 08/07/23 00:11 Temperature 97.9 F Pulse Rate 67 Respiratory 18 Rate Blood Pressure 105/73 O2 Sat by Pulse 98 Oximetry - Reevaluation(s) Reevaluation #1: Medical record is reviewed (Gil Ann) Reevaluation #2: Patient symptoms are improved (Gil Ann) Reevaluation #3: Patient informed results and questions answered (Gil Ann) Reevaluation #4: 08/07/23 06:29 Was pt. sent in by a medical professional or institution (, PA, CAN CLEANER, urgent care, hospital, or half-way...) When possible be specific @ -no Did you speak to anyone other than the patient for history (EMS, parent, family, police, friend...)? What history was obtained from this source @ -no Did you review nursing and triage notes (agree or disagree)? Why? @ -agree Are old charts reviewed (outside hosp., previous admission, EMS record, old EKG, old radiological studies, urgent care reports/EKG's, half-way records)? Report findings @ -yes Differential Diagnosis (chest pain, altered mental status, abdominal pain women, abdominal pain men, vaginal bleeding, weakness, fever, dyspnea, syncope, headache, dizziness, GI bleed, back pain, seizure, CVA, palpatations, mental health, musculoskeletal)? @ -prior EKG interpreted by me (3pts min.). @ -yes X-rays interpreted by me (1pt min.). @ -yes negative for acute disease CT interpreted by me (1pt min.). @ -no U/S interpreted by me (1pt. min.). @ -no What testing was considered but not performed or refused? (CT, X-rays, U/S, labs)? Why? @ -none What meds were considered but not given or refused? Why? @ -none Did you discuss the management of the patient with other professionals (professionals i.e. , PA, CAN CLEANER, lab, RT, psych nurse, mental health social worker, brush hand, teacher, chief fundraising officer, case management manager)? Give summary @ -no Was smoking cessation discussed for >3mins.? @ -no Was critical care preformed (if so, how long)? @ -no Were there social determinants of health that impacted care today? How? (Homelessness, low income, unemployed, alcoholism, drug addiction, transportation, low edu. Level, literacy, decrease access to med. care, custodial, rehab)? @ -none Was there de-escalation of care discussed even if they declined (Discuss DNR or withdrawal of care, Hospice)? DNR status @ -no What co-morbidities impacted this encounter? (DM, HTN, Smoking, COPD, CAD, Cancer, CVA, ARF, Chemo, Hep., AIDS, mental health diagnosis, sleep apnea, morbid obesity)? @ -none Was patient admitted / discharged? Hospital course, mention meds given and route, prescriptions, significant lab abnormalities, going to OR and other pertinent info. @ - 43 male to the emergency department for evaluation today. Patient Dese for evaluation of recurrentshortness breath abdominal pain and cough. Patient symptoms are improving here in the ER patient feels improved here in the ER can be discharged home Discharge Undiagnosed new problem with uncertain prognosis? @ -no Drug Therapy requiring intensive monitoring for toxicity (Heparin, Nitro, Insulin, Cardizem)? @ -no Were any procedures done? @ -no Diagnosis/symptom? @ -Chest pain Acute, or Chronic, or Acute on Chronic? @ -Acute Uncomplicated (without systemic symptoms) or Complicated (systemic symptoms)? @ -Complicated Side effects of treatment? @ -no Exacerbation, Progression, or Severe Exacerbation? @ -exacerbation Poses a threat to life or bodily function? How? (Chest pain, [place], [place], pneumonia, PE, COPD, DKA, ARF, appy, cholecystitis, CVA, Diverticulitis, Homicidal, Suicidal, threat to staff... and all critical care pts) @ -Acute chest pain (Gil Ann) Chest Pain MDM <Elian Doe - Last Filed: 08/06/23 16:11> <Gil Ann - Last Filed: 08/17/23 21:09> - MDM I performed the quick note portion of the exam. Electronically signed by Elian Doe PA-C (Elian Doe) 43 male to the emergency department for evaluation today. Patient Dese for evaluation of recurrentshortness breath abdominal pain and cough. Patient symptoms are improving here in the ER patient feels improved here in the ER can be discharged home (Gil Ann) Disposition <Elian Doe - Last Filed: 08/06/23 16:11> Is patient prescribed a controlled substance at d/c from ED?: No Time of Disposition: 23:10 <Gil Ann - Last Filed: 08/17/23 21:09> Clinical Impression: Atypical chest pain, Chest pain, Pleurisy, Costochondritis, Acute bronchitis, Pneumonia Disposition: HOME SELF-CARE Condition: Good Instructions (If sedation given, give patient instructions): Pleurisy (ED), Acute Bronchitis (ED) Prescriptions: predniSONE 50 mg PO DAILY #5 tab Azithromycin [Zithromax] 500 mg PO DAILY 5 Days #5 tab Referrals: Eric Jang MD [Primary Care Provider] - 1-2 days
--- NOTE | 2023-08-06 16:31 | XR ---
EXAMINATION TYPE: XR chest 2V DATE OF EXAM: 08/06/2023 4:24 PM CLINICAL INDICATION:Male, 43 years old with history of cough; [facility] COMPARISON: Chest radiographs from 04/26/2022 TECHNIQUE: XR chest 2V Frontal and lateral views of the chest. FINDINGS: Lungs/Pleura: There is no evidence of pleural effusion, focal consolidation, or pneumothorax. Pulmonary vascularity: Unremarkable. Heart/mediastinum: Cardiomediastinal silhouette is unremarkable. Musculoskeletal: No acute osseous pathology. Other findings: None IMPRESSION: No acute cardiopulmonary disease/process.
[2023-08-06 17:52] LABS: ALT 39 U/L (4-49); AST 30 U/L (17-59); African American GFR (CKD) >90 (>60 ml/min/1.73 sqM); Albumin 3.5 g/dL (3.5-5.0); Alkaline Phosphatase 98 U/L (38-126); Anion Gap 11 mmol/L; Blood Urea Nitrogen 14 mg/dL (9-20); Calcium 9.4 mg/dL (8.4-10.2); Carbon Dioxide 23 mmol/L (22-30); Chloride 104 mmol/L (98-107); Glucose 130 mg/dL (74-99); Non-African American GFR(CKD) >90 (>60 ml/min/1.73 sqM); Potassium 4.4 mmol/L (3.5-5.1); Sodium 138 mmol/L (137-145); Total Bilirubin 0.3 mg/dL (0.2-1.3)
[2023-08-06] MEDS ORDERED: KETOROLAC 15 MG/ML 1 ML VIAL IVP STA (23:08)
[2023-08-06] MEDS ORDERED: AZITHROMYCIN 500 MG TAB PO STA (23:08)
[2023-08-06] MEDS ORDERED: SODIUM CHLORIDE 0.9% 500 ML 500 ML IV STA (23:08)
[2023-08-06] MEDS ORDERED: methylPREDNISolone SOD SUCCI 125 MG/2 ML VIAL IV STA (23:08)
[2023-08-06] MEDS ORDERED: IPRATROPIUM-ALBUTEROL 3 ML NEB INHALATION STA (23:08)
[2023-08-07 00:27] VITALS: BP 105/73; PULSE 67; TEMP 97.9
== END 2023-08-07 00:11 | disposition home or self-care (01) ==
LOC: EC 15:22
DX: M94.0 Chondrocostal junction syndrome [Tietze] (principal); J20.9 Acute bronchitis, unspecified; J18.9 Pneumonia, unspecified organism; J44.89 Other specified chronic obstructive pulmonary disease; E78.5 Hyperlipidemia, unspecified; F17.200 Nicotine dependence, unspecified, uncomplicated; Z86.59 Personal history of other mental and behavioral disorders; F12.90 Cannabis use, unspecified, uncomplicated; Z79.899 Other long term (current) drug therapy; Z20.822 Contact with and (suspected) exposure to COVID-19
CPT/HCPCS: 99285; 96374; 96375; 96361; 36415; 94640; 93005; 85379; 80053; 84484; 87636; 71046; J2930; J1885

== ENCOUNTER 2023-12-17 09:22 | Emergency (ER) | payer MEDICARE, OTHER ==
--- NOTE | 2023-12-17 09:49 | ED ---
ENT HPI - General Chief complaint: ENT Stated complaint: Pain in L ear Time Seen by Provider: 12/17/23 09:30 Source: patient, RN notes reviewed Mode of arrival: ambulatory Limitations: no limitations - History of Present Illness Initial comments: 43 male presents emergency department with chief complaint of left ear pain. Patient states that febrile a few days ago states is worsened no dental pain he states there is no drainage he states started here and swelling around and beneath his ear - Related Data Home Medications Medication Instructions Recorded Confirmed Albuterol Inhaler [Ventolin Hfa 1 - 2 puff INHALATION RT-Q6H PRN 09/04/18 09/04/18 Inhaler] Flovent Unknown Dose 1 puff INHALATION RT-BID 09/04/18 09/04/18 Ibuprofen [Motrin] 800 mg PO TID PRN 09/04/18 09/04/18 Loratadine [Claritin] 10 mg PO DAILY 09/04/18 09/04/18 Montelukast [Singulair] 10 mg PO HS 09/04/18 09/04/18 Previous Rx's Medication Instructions Recorded Sulfamethox-Tmp 800-160Mg [Bactrim 1 each PO Q12HR #20 tab 04/20/21 Ds] Chlorhexidine Gluconate [Peridex] 15 ml PO BID #473 ml 05/26/21 Ibuprofen [Motrin] 600 mg PO Q8HR PRN #30 tab 05/26/21 clindamycin HCL [Clindamycin HCl] 300 mg PO Q6HR #40 cap 05/26/21 Azithromycin [Zithromax] 500 mg PO DAILY 5 Days #5 tab 08/06/23 predniSONE 50 mg PO DAILY #5 tab 08/06/23 Amoxic-Pot Clav 875-125Mg 1 tab PO Q12HR #20 tab 12/17/23 [Augmentin 875-125] Allergies Allergy/AdvReac Type Severity Reaction Status Date / Time beclomethasone [From Qvar] Allergy Chest Pain Verified 12/17/23 09:26 Review of Systems ROS Statement: Those systems with pertinent positive or pertinent negative responses have been documented in the HPI. ROS Other: All systems not noted in ROS Statement are negative. Past Medical History Past Medical History: Asthma, COPD, Hyperlipidemia Additional Past Medical History / Comment(s): alcoholism History of Any Multi-Drug Resistant Organisms: None Reported Past Surgical History: Ear Surgery, Orthopedic Surgery Additional Past Surgical History / Comment(s): right foot, Past Psychological History: Anxiety Smoking Status: Current every day smoker Past Alcohol Use History: Daily Past Drug Use History: Marijuana General Exam Limitations: no limitations General appearance: alert, in no apparent distress Head exam: Present: atraumatic, normocephalic, normal inspection Eye exam: Present: normal appearance, PERRL, EOMI. Absent: scleral icterus, conjunctival injection, periorbital swelling ENT exam: Present: mucous membranes moist. Absent: normal oropharynx, TM's normal bilaterally (Erythema, fluid noted) Neck exam: Present: full ROM, lymphadenopathy. Absent: normal inspection, tenderness, meningismus Respiratory exam: Present: normal lung sounds bilaterally. Absent: respiratory distress, wheezes, rales, rhonchi, stridor Cardiovascular Exam: Present: regular rate, normal rhythm, normal heart sounds. Absent: systolic murmur, diastolic murmur, rubs, gallop, clicks Course Vital Signs 12/17/23 09:23 Temperature 97.8 F Pulse Rate 78 Respiratory 16 Rate Blood Pressure 122/77 O2 Sat by Pulse 98 Oximetry Medical Decision Making - Medical Decision Making Was pt. sent in by a medical professional or institution (, PA, SENIOR ECOLOGIST, urgent care, hospital, or alf...) When possible be specific @ -No Did you speak to anyone other than the patient for history (EMS, parent, family, police, friend...)? What history was obtained from this source @ -No Did you review nursing and triage notes (agree or disagree)? Why? @ -I reviewed and agree with nursing and triage notes Were old charts reviewed (outside hosp., previous admission, EMS record, old EKG, old radiological studies, urgent care reports/EKG's, alf records)? Report findings @ -No old charts were reviewed Differential Diagnosis (chest pain, altered mental status, abdominal pain women, abdominal pain men, vaginal bleeding, weakness, fever, dyspnea, syncope, headache, dizziness, GI bleed, back pain, seizure, CVA, palpatations, mental health, musculoskeletal)? @ -Otitis media otitis externa eustachian tube dysfunction EKG interpreted by me (3pts min.). @ -As above X-rays interpreted by me (1pt min.). @ -None done CT interpreted by me (1pt min.). @ -None done U/S interpreted by me (1pt. min.). @ -None done What testing was considered but not performed or refused? (CT, X-rays, U/S, labs)? Why? @ -None What meds were considered but not given or refused? Why? @ -None Did you discuss the management of the patient with other professionals (professionals i.e. Dr., PA, SENIOR ECOLOGIST, lab, RT, psych nurse, community mental health social worker, molding utility worker, teacher, loan officer, field nurse case manager)? Give summary @ -No Was smoking cessation discussed for >3mins.? @ -No Was critical care preformed (if so, how long)? @ -No Were there social determinants of health that impacted care today? How? (Homelessness, low income, unemployed, alcoholism, drug addiction, transportation, low edu. Level, literacy, decrease access to med. care, [facility], rehab)? @ -No Was there de-escalation of care discussed even if they declined (Discuss DNR or withdrawal of care, Hospice)? DNR status @ -No What co-morbidities impacted this encounter? (DM, HTN, Smoking, COPD, CAD, Cancer, CVA, ARF, Chemo, Hep., AIDS, mental health diagnosis, sleep apnea, morbid obesity)? @ -None Was patient admitted / discharged? Hospital course, mention meds given and route, prescriptions, significant lab abnormalities, going to OR and other pertinent info. @ -discharged patient has otitis media started on augmentin Undiagnosed new problem with uncertain prognosis? @ -No Drug Therapy requiring intensive monitoring for toxicity (Heparin, Nitro, Insulin, Cardizem)? @ -No Were any procedures done? @ -No Diagnosis/symptom? @ -otitis media Acute, or Chronic, or Acute on Chronic? @ -acute Uncomplicated (without systemic symptoms) or Complicated (systemic symptoms)? @ -uncomplicated Side effects of treatment? @ -No Exacerbation, Progression, or Severe Exacerbation? @ -No Poses a threat to life or bodily function? How? (Chest pain, [place], [place], pneumonia, PE, COPD, DKA, ARF, appy, cholecystitis, CVA, Diverticulitis, Homicidal, Suicidal, threat to staff... and all critical care pts) @ -No Disposition Clinical Impression: Otitis media Disposition: HOME SELF-CARE Condition: Stable Instructions (If sedation given, give patient instructions): Earache (ED) Additional Instructions: Please return to the Emergency Department if symptoms worsen or any other concerns. Prescriptions: Amoxic-Pot Clav 875-125Mg [Augmentin 875-125] 1 tab PO Q12HR #20 tab Is patient prescribed a controlled substance at d/c from ED?: No Referrals: Eric Jang MD [REFERRING] - 1-2 days Time of Disposition: 09:49
[2023-12-17 10:51] VITALS: BP 122/77; PULSE 78; RESP 16; TEMP 97.8
== END 2023-12-17 09:58 | disposition home or self-care (01) ==
LOC: EC 09:22
DX: H66.92 Otitis media, unspecified, left ear (principal); F17.200 Nicotine dependence, unspecified, uncomplicated; F12.90 Cannabis use, unspecified, uncomplicated; Z88.8 Allergy status to other drugs, medicaments and biological substances
CPT/HCPCS: 99282

== ENCOUNTER 2024-02-26 14:08 | Emergency (ER) | payer MEDICARE, OTHER ==
--- NOTE | 2024-02-26 14:41 | ED ---
Skin/Abscess/FB HPI - General Chief complaint: Skin/Abscess/Foreign Body Stated complaint: Abd sore Time Seen by Provider: 02/26/24 14:39 Source: patient, family, RN notes reviewed Mode of arrival: ambulatory Limitations: no limitations - History of Present Illness Initial comments: 43-year-old male presented to the ER with a chief complaint of a groin abscess. Patient reports for the past 3 days he has noticed a growing red bump growing on his groin. He states he believes is an abscess. He denies any current drainage. He does report he gets these about twice a year. He denies any fevers, chills, nausea, vomiting, chest pain, shortness of breath, abdominal pain or peripheral edema. Patient denies a history of MRSA infections. - Related Data Home Medications Medication Instructions Recorded Confirmed Albuterol Inhaler [Ventolin Hfa 1 - 2 puff INHALATION RT-Q6H PRN 09/04/18 09/04/18 Inhaler] Flovent Unknown Dose 1 puff INHALATION RT-BID 09/04/18 09/04/18 Ibuprofen [Motrin] 800 mg PO TID PRN 09/04/18 09/04/18 Loratadine [Claritin] 10 mg PO DAILY 09/04/18 09/04/18 Montelukast [Singulair] 10 mg PO HS 09/04/18 09/04/18 Previous Rx's Medication Instructions Recorded Sulfamethox-Tmp 800-160Mg [Bactrim 1 each PO Q12HR #20 tab 04/20/21 Ds] Chlorhexidine Gluconate [Peridex] 15 ml PO BID #473 ml 05/26/21 Ibuprofen [Motrin] 600 mg PO Q8HR PRN #30 tab 05/26/21 clindamycin HCL [Clindamycin HCl] 300 mg PO Q6HR #40 cap 05/26/21 Azithromycin [Zithromax] 500 mg PO DAILY 5 Days #5 tab 08/06/23 predniSONE 50 mg PO DAILY #5 tab 08/06/23 Amoxic-Pot Clav 875-125Mg 1 tab PO Q12HR #20 tab 12/17/23 [Augmentin 875-125] Cephalexin [Keflex] 500 mg PO Q6HR #40 cap 02/26/24 Sulfamethox-Tmp 800-160Mg [Bactrim 1 each PO Q12HR #20 tab 02/26/24 Ds] Allergies Allergy/AdvReac Type Severity Reaction Status Date / Time beclomethasone [From Qvar] Allergy Chest Pain Verified 02/26/24 14:11 Review of Systems ROS Statement: Those systems with pertinent positive or pertinent negative responses have been documented in the HPI. ROS Other: All systems not noted in ROS Statement are negative. Past Medical History Past Medical History: Asthma, COPD, Hyperlipidemia Additional Past Medical History / Comment(s): alcoholism History of Any Multi-Drug Resistant Organisms: None Reported Past Surgical History: Ear Surgery, Orthopedic Surgery Additional Past Surgical History / Comment(s): right foot, Past Psychological History: Anxiety Smoking Status: Current every day smoker Past Alcohol Use History: Daily Past Drug Use History: Marijuana General Exam Limitations: no limitations General appearance: alert, in no apparent distress Respiratory exam: Present: normal lung sounds bilaterally. Absent: respiratory distress, wheezes, rales, rhonchi, stridor Cardiovascular Exam: Present: regular rate, normal rhythm, normal heart sounds. Absent: systolic murmur, diastolic murmur, rubs, gallop, clicks Neurological exam: Present: alert, oriented X3, CN II-XII intact Skin exam: Present: warm, dry, intact, normal color, other (1 x 2 cm abscess to right groin. No drainage present. Mild tenderness to touch.) Course Vital Signs 02/26/24 14:09 Temperature 98.0 F Pulse Rate 94 Respiratory 16 Rate Blood Pressure 127/85 O2 Sat by Pulse 93 L Oximetry Procedures - Incision & Drainage Consent Obtained: verbal consent Indication: Abscess Site: other (groin/2 in inferior to pubic bone) Size (cm): 2 Anesthetic Used: lidocaine 1%, without epi Amount (mLs): 2 I&D Cleaning Method: Alcohol Wipe Sterile Field Used?: Yes Ultrasound used: No Needle Aspiration Performed?: Yes I&D Drainage Obtained: Pus, Blood Insertion of drain: No Culture Obtained?: Yes Patient Tolerated Procedure: well Medical Decision Making - Medical Decision Making Was pt. sent in by a medical professional or institution (, PA, SHUTTLE VENEERING SUPERVISOR, urgent care, hospital, or detention...) When possible be specific @ -No Did you speak to anyone other than the patient for history (EMS, parent, family, police, friend...)? What history was obtained from this source @ -No Did you review nursing and triage notes (agree or disagree)? Why? @ -I reviewed and agree with nursing and triage notes Were old charts reviewed (outside hosp., previous admission, EMS record, old EKG, old radiological studies, urgent care reports/EKG's, detention records)? Report findings @ -No old charts were reviewed Differential Diagnosis (chest pain, altered mental status, abdominal pain women, abdominal pain men, vaginal bleeding, weakness, fever, dyspnea, syncope, headache, dizziness, GI bleed, back pain, seizure, CVA, palpatations, mental health, musculoskeletal)? @ -Cellulitis, abscess, laceration... this list is not meant to be all inclusive EKG interpreted by me (3pts min.). @ -None X-rays interpreted by me (1pt min.). @ -None done CT interpreted by me (1pt min.). @ -None done U/S interpreted by me (1pt. min.). @ -None done What testing was considered but not performed or refused? (CT, X-rays, U/S, labs)? Why? @ -None What meds were considered but not given or refused? Why? @ -None Did you discuss the management of the patient with other professionals (professionals i.e. , PA, SHUTTLE VENEERING SUPERVISOR, lab, RT, psych nurse, hospice social worker, academic interventionist, teacher, fourth officer, family caseworker)? Give summary @ -No Was smoking cessation discussed for >3mins.? @ -No Was critical care preformed (if so, how long)? @ -No Were there social determinants of health that impacted care today? How? (Homelessness, low income, unemployed, alcoholism, drug addiction, transportation, low edu. Level, literacy, decrease access to med. care, senior care, rehab)? @ -No Was there de-escalation of care discussed even if they declined (Discuss DNR or withdrawal of care, Hospice)? DNR status @ -No What co-morbidities impacted this encounter? (DM, HTN, Smoking, COPD, CAD, Cancer, CVA, ARF, Chemo, Hep., AIDS, mental health diagnosis, sleep apnea, morbid obesity)? @ -None Was patient admitted / discharged? Hospital course, mention meds given and route, prescriptions, significant lab abnormalities, going to OR and other pertinent info. @ -Discharged. 43 year old male presenting to the ER with a chief complaint of a groin abscess. History and physical exam completed. Vitals stable. Patient in no signs of acute distress and nontoxic-appearing. Exam remarkable for a 1 x 2 cm raised fluctuant area consistent with an abscess 2 inches inferior to pubic bone. There is no purulent drainage. There is tenderness to touch. Patient is agreeable for I&D. Upon administering anesthetic medication abscess began draining purulent material. Culture was obtained. Abscess was massaged with continued expression of purulent material. No packing placed as wound was superficial. Bactrim and Keflex will be prescribed. I advised massage and warm compresses. Strict return parameters discussed. Patient discharged in stable condition with follow-up to PCP. Referrals given. Patient verbally expressed understanding and agreement with care plan. Case discussed with ED attending, Dr. Polo. Undiagnosed new problem with uncertain prognosis? @ -No Drug Therapy requiring intensive monitoring for toxicity (Heparin, Nitro, Insulin, Cardizem)? @ -No Were any procedures done? @ -Yes, I&D Diagnosis/symptom? @ -Abscess Acute, or Chronic, or Acute on Chronic? @ -Acute Uncomplicated (without systemic symptoms) or Complicated (systemic symptoms)? @ -Uncomplicated Side effects of treatment? @ -No Exacerbation, Progression, or Severe Exacerbation? @ -No Poses a threat to life or bodily function? How? (Chest pain, [place], [place], pneumonia, PE, COPD, DKA, ARF, appy, cholecystitis, CVA, Diverticulitis, Homicidal, Suicidal, threat to staff... and all critical care pts) @ -No Disposition Clinical Impression: Abscess Disposition: HOME SELF-CARE Condition: Stable Instructions (If sedation given, give patient instructions): Abscess Incision and Drainage (ED), Abscess (ED) Additional Instructions: Please keep area clean. I recommend warm compresses/showers and massaging affected area. Complete full course of Bactrim and Keflex. Follow-up with a [facility] physician. Return to the ER for any new or worse concerns. Prescriptions: Sulfamethox-Tmp 800-160Mg [Bactrim Ds] 1 each PO Q12HR #20 tab Cephalexin [Keflex] 500 mg PO Q6HR #40 cap Is patient prescribed a controlled substance at d/c from ED?: No Referrals: None,Stated [Primary Care Provider] - 1-2 days Forms: Area PCPs Time of Disposition: 15:08
[2024-02-26] MEDS: LIDOCAINE 1% INJ 10MG/ML (20 ML MDV) SQ ONE (14:56)
[2024-02-26 15:42] VITALS: BP 130/75; PULSE 79; RESP 18; TEMP 98.3
== END 2024-02-26 15:33 | disposition home or self-care (01) ==
LOC: EC 14:08
DX: L02.214 Cutaneous abscess of groin (principal); F17.200 Nicotine dependence, unspecified, uncomplicated; Z91.048 Other nonmedicinal substance allergy status
CPT/HCPCS: 87070; 87205; 99283; 10060; J2001